=== PATIENT | female | born 1950 | race Caucasian/White ===

== ENCOUNTER 2017-04-09 13:41 | Emergency (ER) | payer OTHER, BC ==
--- NOTE | 2017-04-09 14:56 | DIAGNOSTIC IMAGING REPORT ---
PROCEDURE: XR CHEST 1 VIEW INDICATION: SHORTNESS OF BREATH TECHNIQUE: Portable AP view 02:29 p.m. COMPARISON: None. FINDINGS: Lungs are clear. Heart and mediastinum are normal. Thorax is normal. IMPRESSION: 1. Negative chest.
--- NOTE | 2017-04-09 17:21 | DIAGNOSTIC IMAGING REPORT ---
PROCEDURE: CTA THORAX WITH CONTRAST INDICATION: SHORTNESS OF BREATH TECHNIQUE: 92 ml of Isovue 370 was injected intravenously and axial images were obtained of the entire thorax with 3D sagittal and coronal MIP reconstructions. COMPARISON: Chest x-ray 04/09/2017 no evidence of pulmonary emboli. FINDINGS: No evidence of pulmonary emboli. No infiltrates. Calcified left lower lobe granuloma. No adenopathy or effusion. Moderate atherosclerosis of the aorta. Normal heart size. Visualized upper abdomen is unremarkable. Moderate degenerative changes of the spine. IMPRESSION: 1. No evidence of pulmonary emboli, aortic dissection or aneurysm 2. Old granulomatous disease 3. Results discussed with Dr. Pelletier
--- NOTE | 2017-04-09 17:40 | ED ORDER SUMMARY ---
..... Patient: HAYDEN MILES OrderSheet [facility] VisitID: [id number] [address] [place] [address] 66y, F Registration Date/Time: 04/09/2017 ORDER SHEET Weight: 83.9 kg (stated) Allergies: No Known Drug Allergy GENERAL ORDERS: Chest 1V Urgent (14:10 04/09/2017 Travon ALCANTAR) (Ack 14:16 NHouse ER Tech1) (14:26 JBoardley R.N.) Shear Operator (Continuous) (14:10 04/09/2017 Travon ALCANTAR) (14:15 NHouse ER Tech1) Cardiac Panel Stat (14:13 04/09/2017 Travon ALCANTAR) (14:14 PWeiler ER Tech1) BNP Urgent (14:04/09/2017 Travon ALCANTAR) (14:14 PWeiler ER Tech1) Oxygen (2 L/min) (NC) (14:13 04/09/2017 Travon ALCANTAR) (14:26 JBoardley R.N.) Pulse oximeter (14:13 04/09/2017 Travon ALCANTAR) (14:15 NHouse ER Tech1) EKG - ER Stat (14:13 04/09/2017 Travon ALCANTAR) (14:14 PWeiler ER Tech1) CTA Thorax w Cont (No) (ok) Urgent (16:24 04/09/2017 Travon ALCANTAR) (Ack 16:32 NHouse ER Tech1) (16:58 MCampbell) MEDICATION ORDERS: Aspirin PO 325 mg (NOW) (14:03 04/09/2017 Juliann R.N. verbal order read back to Travon ALCANTAR) (14:03 Juliann R.N.) DuoNeb Neb Tx 1 unit dose (NOW) (14:13 04/09/2017 Travon ALCANTAR) (Ack 14:16 NHouse ER Tech1) (14:23 DBourey) Prednisone PO 60 mg (NOW) (14:14 04/09/2017 Travon ALCANTAR) (Ack 14:15 JBoardley R.N.) (14:27 JBoardley R.N.) IV FLUIDS: IV NS : initial bolus 1000 mL (1000 mL/hr), then none - (NOW) (14:10 04/09/2017 Travon ALCANTAR) ([facility] 14:15 Raquel Conway.Nia) (14:27 Raquel Robles) ORDER SHEET NOTES: [Electronically signed by Bj Vega R.N. (18:03 04/09/2017)] [Electronically signed by Cydney Pelletier MD (03:05 04/11/2017)] [Electronically locked/signed by Bj Vega R.N. (18:03 04/09/2017)]
--- NOTE | 2017-04-09 17:40 | ED ORDER SUMMARY ---
..... Patient: HAYDEN MILES OrderSheet [facility] VisitID: [id number] [address] [place] [address] 66y, F Registration Date/Time: 04/09/2017 ORDER SHEET Weight: 83.9 kg (stated) Allergies: No Known Drug Allergy GENERAL ORDERS: Chest 1V Urgent (14:10 04/09/2017 Travon ALCANTAR) (Ack 14:16 NHouse ER Tech1) (14:26 JBoardley R.N.) Aluminum Can Collector (Continuous) (14:10 04/09/2017 Travon ALCANTAR) (14:15 NHouse ER Tech1) Cardiac Panel Stat (14:13 04/09/2017 Travon ALCANTAR) (14:14 PWeiler ER Tech1) BNP Urgent (14:04/09/2017 Travon ALCANTAR) (14:14 PWeiler ER Tech1) Oxygen (2 L/min) (NC) (14:13 04/09/2017 Travon ALCANTAR) (14:26 JBoardley R.N.) Pulse oximeter (14:13 04/09/2017 Travon ALCANTAR) (14:15 NHouse ER Tech1) EKG - ER Stat (14:13 04/09/2017 Travon ALCANTAR) (14:14 PWeiler ER Tech1) CTA Thorax w Cont (No) (ok) Urgent (16:24 04/09/2017 Travon ALCANTAR) (Ack 16:32 NHouse ER Tech1) (16:58 MCampbell) MEDICATION ORDERS: Aspirin PO 325 mg (NOW) (14:03 04/09/2017 Juliann R.N. verbal order read back to Travon ALCANTAR) (14:03 Juliann R.N.) DuoNeb Neb Tx 1 unit dose (NOW) (14:13 04/09/2017 Travon ALCANTAR) (Ack 14:16 NHouse ER Tech1) (14:23 DBourey) Prednisone PO 60 mg (NOW) (14:14 04/09/2017 Travon ALCANTAR) (Ack 14:15 JBoardley R.N.) (14:27 JBoardley R.N.) IV FLUIDS: IV NS : initial bolus 1000 mL (1000 mL/hr), then none - (NOW) (14:10 04/09/2017 Travon ALCANTAR) ([facility] 14:15 Raquel Conway.Nia) (14:27 Raquel Robles) ORDER SHEET NOTES: [Electronically signed by Bj Vega R.N. (18:03 04/09/2017)] [Electronically signed by Cydney Pelletier MD (03:05 04/11/2017)] [Electronically locked/signed by Bj Vega R.N. (18:03 04/09/2017)]
--- NOTE | 2017-04-09 17:40 | ED NURSING NOTES ---
Clinical Report - Nurses [facility] [address] 04/09/2017 13:45 Patient: HAYDEN MILES TRIAGE Triage time 13:51. Acuity: LEVEL 3. Chief Complaint: CHEST PAIN and SHORTNESS OF BREATH (and cough). Alert. No acute distress. ( Pt. states she started having pain in her left shoulder and under her left breast. This started 3 days ago and she is concerned now because the pain is not going away. She said the pain is "sharp, shooting pain," and is worse when moving. 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 SEPSIS SCREEN: Sepsis Screen. Negative (no infection suspected/documented). ASAD COMA SCORE: Aylett Coma Scale: 15- eyes open spontaneously (4); best verbal response- oriented x 4 (5); best motor response- obeys commands (6). --14:03 Lorna Tee R.N. 13:51 04/09/17. Pain level now 5/10. --14:03 Lorna Tee R.N. Weight: 83.9 kg stated. Height/Length: 66 inches Per Patient. BMI: 29.9. --13:54 Lorna Tee R.N. Medications Levothyroxine Sodium Oral 112mcg, daily. --13:56 Lorna Tee R.N. Flexeril 10mg prn . --13:56 Lorna Tee R.N. Cortisone injections. --13:57 Lorna Tee R.N. Ambien Oral, as needed. --13:57 Lorna Tee R.N. Albuterol Sulfate Inhalation. --14:02 Lorna Tee R.N. Allergies No Known Drug Allergy. --13:57 Lorna Tee R.N. History Arrived by private vehicle. Historian: patient. Unaccompanied. Primary physician (Dr. Mathis: in [place]). Onset. (3 days ago. Pt. states she is concerned because she is not getting any better.). Treatment VALVE PIPE IRRIGATOR: None. PAST MEDICAL HX: Immunizations: up-to-date. SOCIAL HX: Light tobacco smoker (cigarette)- less than 1/2 a pack per day. Occasional alcohol use. No drug use. ABUSE ASSESSMENT: Abuse assessment: The patient was asked "Do you feel safe in your home?" and "Has anyone hurt you or threatened to hurt you?". No report of abuse. SELF HARM ASSESSMENT: A self harm assessment was performed. The patient answered "no" to the question "Do you have thoughts of harming or killing yourself?" and "Have you recently had thoughts about harming or killing others?". NUTRITIONAL RISK ASSESSMENT: The nutritional risk assessment revealed no deficiencies. FUNCTIONAL ASSESSMENT: Functional assessment: no impairments noted. LEARNING NEEDS ASSESSMENT: The learning needs assessment revealed no barriers. --14:03 Lorna Tee R.N. PROBLEMS: Nephrolithiasis. Chronic Back Pain. Hypothyroidism. --13:58 Lorna Tee R.N. ADDITIONAL SURGERIES: Back Surgery. --13:58 Lorna Tee R.N. Interventions ID band on patient. Ambulatory. --14:03 Lorna Tee R.N. PHYSICAL ASSESSMENT 14:00. Ambulatory to room. GENERAL / NEURO / PSYCH: Alert. Oriented X 4. Appears in no acute distress. HEENT: Mucous membranes are pink. RESPIRATORY: Respirations not labored. CVS: Pulses within normal limits. Capillary refill less than 2 seconds. GI / : Abdomen soft. EXTREMITIES: No lower extremity edema. SKIN: Skin is warm and dry. Skin is non-tender. --14:00 Lorna Tee R.N. ( Pt. has a dry non-productive cough.). --14:03 Lorna Tee R.N. NURSING PROGRESS NOTES EKG time: (1356). EKG was ordered, performed by a tech and shown to the ED physician. --13:58 Lorna Tee R.N. 13:56. Oxygen administered by nasal cannula at 2 liters. assistant manager bilingual, pulse oximeter and NIBP monitor placed on patient; wharfinger chief- Lead II; monitor alarms on. Patient gowned. Head of bed elevated. Two patient identifiers checked. Call light placed in reach. Side rails up x 2. Bed placed in lowest position. Brakes of bed on. Patient ready for evaluation- chart flagged. --13:59 Lorna Tee R.N. 13:59 04/09/2017 Site #1 started via IV in the left antecubital space with an 20g angiocath, with aseptic technique and good blood return; one attempt. Blood drawn: rainbow set. Labeled in the presence of the patient and sent to the lab. Saline lock flushed with 10 mL saline (accessed by BRI Walsh). --13:59 Lorna Tee R.N. 14:03 04/09/2017 Aspirin PO 325 mg given. Allergies verified and confirmed 5 rights. --14:03 Lorna Tee R.N. 14:17 04/09/2017 Started bag #1 1000 mL IV Fluids IV NS (Saline); at 1000 mL/hr over 1 hour(s) via site #1. Allergies verified and confirmed 5 rights. IV patency established. IV site checked: no pain, redness, or swelling. IV flushed thoroughly pre- and post-medication administration. Completed per protocol. --14:27 Bj Vega R.N. 14:22 04/09/2017 Prednisone PO 60 mg given. Allergies verified and confirmed 5 rights. --14:27 Bj Vega R.N. 14:04/09/2017 Duoneb (Ipratropium-Albuterol) Neb TX 1 unit dose given. Given by the respiratory therapist. --14:23 Frantz Abrams 14:28 04/09/17. Cardiac rhythm: normal sinus rhythm. --14:28 Bj Vega R.N. 14:27 04/09/17. BP: 120/70. HR: 83. RR: 16. O2 saturation: 100% on nasal cannula at 2 liters/minute. --14:28 Bj Vega R.N. 14:41 04/09/17. Reassessment after oxygen and fluids administered and medication administered. She has had no adverse reaction. Overall patient status is the same- she states feels the same. --14:41 Bj Vega R.N. 14:41 04/09/17. BP: 113/69. HR: 88. RR: 20. O2 saturation: 98% on nasal cannula at 2 liters/minute. --14:41 Bj Vega R.N. 14:41 04/09/17. --14:41 Bj Vega R.N. 14:42 04/09/17. Cardiac rhythm: normal sinus rhythm. --14:42 Bj Vega R.N. 14:42 04/09/17. Patient informed about reason for wait and about plan of care. --14:42 Bj Vega R.N. 15:49 04/09/17. BP: 113/71. HR: 80 (regular and normal rate). RR: 21. O2 saturation: 98% on nasal cannula at 2 liters/minute. Pain level now: 02/25. --15:49 Lorna Tee R.N. 17:08 04/09/17. BP: 124/70. HR: 79. RR: 20. O2 saturation: 98%. --17:09 Lorna Tee R.N. Patient informed about reason for wait and about plan of care. --17:09 Lorna Tee R.N. 17:49 04/09/2017 IV Fluids IV NS Discontinued: bag #1 infused upon discharge. Total amount infused: 1000 mL. --17:49 Bj Vega R.N. DISPOSITION / DISCHARGE 17:48 04/09/2017 Site #1 removed upon discharge. Catheter intact. Bandage applied. --17:48 Bj Vega R.N. 17:48 04/09/17. Condition at departure: improved. The goals identified in the patient's plan of care were met. No learning barriers present. Discharge instructions provided and reviewed with the patient. Reviewed warnings. Reviewed medication(s). Treatments reviewed. Patient verbalized understanding. Written instructions provided in Persian. The patient was discharged by the physician. She was discharged home and accompanied by family. She left the Emergency Department ambulatory and via private vehicle. Family member driving. --17:49 Bj Vega R.N. 17:48 04/09/17. BP: 124/73. HR: 83. RR: 14. O2 saturation: 99% on room air. Temp: 98.1 F (oral). Pain level now: 01/25. --17:49 Bj Vega R.N. 17:49 04/09/17. Departure time: 17:49 Apr 09 2017. --17:49 Bj Vega R.N. Locked/Released at 04/09/2017 18:03 by Bj Vega R.N.
--- NOTE | 2017-04-09 17:40 | ED NURSING NOTES ---
Clinical Report - Nurses [facility] [place] [address] [address] 04/09/2017 13:45 Patient: HAYDEN MILES TRIAGE Triage time 13:51. Acuity: LEVEL 3. Chief Complaint: CHEST PAIN and SHORTNESS OF BREATH (and cough). Alert. No acute distress. ( Pt. states she started having pain in her left shoulder and under her left breast. This started 3 days ago and she is concerned now because the pain is not going away. She said the pain is "sharp, shooting pain," and is worse when moving. 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 SEPSIS SCREEN: Sepsis Screen. Negative (no infection suspected/documented). ASAD COMA SCORE: Chana Coma Scale: 15- eyes open spontaneously (4); best verbal response- oriented x 4 (5); best motor response- obeys commands (6). --14:03 Lorna Tee R.N. 13:51 04/09/17. Pain level now 5/10. --14:03 Lorna Tee R.N. Weight: 83.9 kg stated. Height/Length: 66 inches Per Patient. BMI: 29.9. --13:54 Lorna Tee R.N. Medications Levothyroxine Sodium Oral 112mcg, daily. --13:56 Lorna Tee R.N. Flexeril 10mg prn . --13:56 Lorna Tee R.N. Cortisone injections. --13:57 Lorna Tee R.N. Ambien Oral, as needed. --13:57 Lorna Tee R.N. Albuterol Sulfate Inhalation. --14:02 Lorna Tee R.N. Allergies No Known Drug Allergy. --13:57 Lorna Tee R.N. History Arrived by private vehicle. Historian: patient. Unaccompanied. Primary physician (Dr. Mathis: in [place]). Onset. (3 days ago. Pt. states she is concerned because she is not getting any better.). Treatment IT LEAD: None. PAST MEDICAL HX: Immunizations: up-to-date. SOCIAL HX: Light tobacco smoker (cigarette)- less than 1/2 a pack per day. Occasional alcohol use. No drug use. ABUSE ASSESSMENT: Abuse assessment: The patient was asked "Do you feel safe in your home?" and "Has anyone hurt you or threatened to hurt you?". No report of abuse. SELF HARM ASSESSMENT: A self harm assessment was performed. The patient answered "no" to the question "Do you have thoughts of harming or killing yourself?" and "Have you recently had thoughts about harming or killing others?". NUTRITIONAL RISK ASSESSMENT: The nutritional risk assessment revealed no deficiencies. FUNCTIONAL ASSESSMENT: Functional assessment: no impairments noted. LEARNING NEEDS ASSESSMENT: The learning needs assessment revealed no barriers. --14:03 Lorna Tee R.N. PROBLEMS: Nephrolithiasis. Chronic Back Pain. Hypothyroidism. --13:58 Lorna Tee R.N. ADDITIONAL SURGERIES: Back Surgery. --13:58 Lorna Tee R.N. Interventions ID band on patient. Ambulatory. --14:03 Lorna Tee R.N. PHYSICAL ASSESSMENT 14:00. Ambulatory to room. GENERAL / NEURO / PSYCH: Alert. Oriented X 4. Appears in no acute distress. HEENT: Mucous membranes are pink. RESPIRATORY: Respirations not labored. CVS: Pulses within normal limits. Capillary refill less than 2 seconds. GI / : Abdomen soft. EXTREMITIES: No lower extremity edema. SKIN: Skin is warm and dry. Skin is non-tender. --14:00 Lorna Tee R.N. ( Pt. has a dry non-productive cough.). --14:03 Lorna Tee R.N. NURSING PROGRESS NOTES EKG time: (1356). EKG was ordered, performed by a tech and shown to the ED physician. --13:58 Lorna Tee R.N. 13:56. Oxygen administered by nasal cannula at 2 liters. vehicle monitor technician, pulse oximeter and NIBP monitor placed on patient; telemetry monitor- Lead II; monitor alarms on. Patient gowned. Head of bed elevated. Two patient identifiers checked. Call light placed in reach. Side rails up x 2. Bed placed in lowest position. Brakes of bed on. Patient ready for evaluation- chart flagged. --13:59 Lorna Tee R.N. 13:59 04/09/2017 Site #1 started via IV in the left antecubital space with an 20g angiocath, with aseptic technique and good blood return; one attempt. Blood drawn: rainbow set. Labeled in the presence of the patient and sent to the lab. Saline lock flushed with 10 mL saline (accessed by BRI Walsh). --13:59 Lorna Tee R.N. 14:03 04/09/2017 Aspirin PO 325 mg given. Allergies verified and confirmed 5 rights. --14:03 Lorna Tee R.N. 14:17 04/09/2017 Started bag #1 1000 mL IV Fluids IV NS (Saline); at 1000 mL/hr over 1 hour(s) via site #1. Allergies verified and confirmed 5 rights. IV patency established. IV site checked: no pain, redness, or swelling. IV flushed thoroughly pre- and post-medication administration. Completed per protocol. --14:27 Bj Vega R.N. 14:22 04/09/2017 Prednisone PO 60 mg given. Allergies verified and confirmed 5 rights. --14:27 Bj Vega R.N. 14:04/09/2017 Duoneb (Ipratropium-Albuterol) Neb TX 1 unit dose given. Given by the respiratory therapist. --14:23 Frantz Abrams 14:28 04/09/17. Cardiac rhythm: normal sinus rhythm. --14:28 Bj Vega R.N. 14:27 04/09/17. BP: 120/70. HR: 83. RR: 16. O2 saturation: 100% on nasal cannula at 2 liters/minute. --14:28 Bj Vega R.N. 14:41 04/09/17. Reassessment after oxygen and fluids administered and medication administered. She has had no adverse reaction. Overall patient status is the same- she states feels the same. --14:41 Bj Vega R.N. 14:41 04/09/17. BP: 113/69. HR: 88. RR: 20. O2 saturation: 98% on nasal cannula at 2 liters/minute. --14:41 Bj Vega R.N. 14:41 04/09/17. --14:41 Bj Vega R.N. 14:42 04/09/17. Cardiac rhythm: normal sinus rhythm. --14:42 Bj Vega R.N. 14:42 04/09/17. Patient informed about reason for wait and about plan of care. --14:42 Bj Vega R.N. 15:49 04/09/17. BP: 113/71. HR: 80 (regular and normal rate). RR: 21. O2 saturation: 98% on nasal cannula at 2 liters/minute. Pain level now: 02/25. --15:49 Lorna Tee R.N. 17:08 04/09/17. BP: 124/70. HR: 79. RR: 20. O2 saturation: 98%. --17:09 Lorna Tee R.N. Patient informed about reason for wait and about plan of care. --17:09 Lorna Tee R.N. 17:49 04/09/2017 IV Fluids IV NS Discontinued: bag #1 infused upon discharge. Total amount infused: 1000 mL. --17:49 Bj Vega R.N. DISPOSITION / DISCHARGE 17:48 04/09/2017 Site #1 removed upon discharge. Catheter intact. Bandage applied. --17:48 Bj Vega R.N. 17:48 04/09/17. Condition at departure: improved. The goals identified in the patient's plan of care were met. No learning barriers present. Discharge instructions provided and reviewed with the patient. Reviewed warnings. Reviewed medication(s). Treatments reviewed. Patient verbalized understanding. Written instructions provided in Serbian. The patient was discharged by the physician. She was discharged home and accompanied by family. She left the Emergency Department ambulatory and via private vehicle. Family member driving. --17:49 Bj Vega R.N. 17:48 04/09/17. BP: 124/73. HR: 83. RR: 14. O2 saturation: 99% on room air. Temp: 98.1 F (oral). Pain level now: 01/25. --17:49 Bj Vega R.N. 17:49 04/09/17. Departure time: 17:49 Apr 09 2017. --17:49 Bj Vega R.N. Locked/Released at 04/09/2017 18:03 by Bj Vega R.N.
--- NOTE | 2017-04-09 17:40 | ED CLINICAL REPORT ---
Clinical Report - Physicians/Mid Levels [facility] [address] [place] [address] 04/09/2017 13:45 Patient: HAYDEN MILES Time Seen: 13:51. Arrived- By private vehicle. Historian- patient. HISTORY OF PRESENT ILLNESS Chief Complaint: CHEST DISCOMFORT. SHORTNESS OF BREATH chest tightness, cough. At its maximum, severity described as moderate. When seen in the E.D., severity described as moderate. Modifying factors- worsened by cough and deep breaths. Not relieved by anything. It is described as tightness and it is described as located in the central chest area. No radiation. This started about 2 weeks ago and is still present. The patient cannot recall the circumstances at the onset. No nausea, vomiting or diaphoresis. She has had difficulty breathing. (patient has been coughing for about 2 weeks now. She states that she has not smoked in about a week, due to the cough and sense of shortness of breath. Patient states her chest tightness has been increasing and that now, she has a pain deep inside her chest to the right. No radiation. Patient does not have a history of COPD though she has smoked for many years. She states her normal oxygen saturation is 94-96%.). Similar symptoms previously: None. Recent medical care: Not recently seen/assessed. REVIEW OF SYSTEMS No fever, chills, cough, pedal edema or calf pain. No fainting episodes, headache, sore throat, blurred vision or abdominal pain. No black stools, difficulty with urination, skin rash, enlarged lymph nodes or joint pain. No bloody stools. All systems otherwise negative, except as recorded above. PAST HISTORY Problems: Nephrolithiasis. Chronic Back Pain. Hypothyroidism. Additional Surgeries: Back Surgery. Medications: Albuterol Sulfate Inhalation. Ambien Oral, as needed. Cortisone injections. Flexeril 10mg prn . Levothyroxine Sodium Oral 112mcg, daily. Allergies: No Known Drug Allergy. SOCIAL HISTORY Smoker- current status unknown. Alcohol use. No drug use. ADDITIONAL NOTES The nursing notes have been reviewed. PHYSICAL EXAM Vital Signs: 04/09/2017 13:51 BP: 133/81. HR: 103. RR: 18. O2 saturation: 96%. Have been reviewed. Appearance: Alert. Oriented X3. No acute distress. (Patient has proximal symptoms of a tight dry cough.). Eyes: Pupils equal, round and reactive to light. Eyes normal inspection. ENT: Nose normal. Neck: Normal inspection. CVS: Normal heart rate and rhythm. Heart sounds normal. Pulses normal. Respiratory: No respiratory distress. Wheezing present (Patient has occasional,fine wheezes in her upper airways.). Breath sounds normal. Chest nontender. Abdomen: Soft and nontender. Back: Normal external inspection. No CVA tenderness. Skin: Skin warm and dry. Normal skin color. No rash. Normal skin turgor. Extremities: Extremities exhibit normal ROM. No lower extremity edema. Neuro: Oriented X 3. No motor deficit. No sensory deficit. LABS, X-RAYS, AND EKG EKG: EKG time: (1356). No acute process. No acute ischemia. Normal EKG. Normal sinus rhythm. Rate: 94. Normal P waves. Normal JUANITA. Normal QRS complex. Normal axis. Normal ST and T waves, QT and QTc. Prior EKG unavailable. The study has been interpreted contemporaneously by me. The study has been independently viewed by me. The EKG appears to be a good tracing. I agree with and confirm the computer reading of the EKG. Rhythm Strip #1: Time: (1440). Rate= 96. Normal sinus rhythm. Regular rhythm. Narrow QRS complexes. No ectopy. Conduction normal. Normal ST segments and T waves. The study was interpreted by me. Chest X-ray: No acute disease. Normal lung markings present. Normal heart size. Mediastinum normal. Great vessels normal. Soft tissues normal. No infiltrate. No fracture. No bony lesion present. Views: AP (portable). Technique: good. The X-rays were independently viewed by me, interpreted by the radiologist and contemporaneously by me and discussed with the radiologist. Prior films were not available for comparison. Chest CT: Lungs normal. Great vessels normal. Mediastinum normal. No fractures noted. Chest CT performed with contrast. The study was independently viewed by me, interpreted by the radiologist and contemporaneously by me and discussed with the radiologist. Prior studies were not available for comparison. Laboratory Tests: CBC w Diff: (HAILEE: 04/09/2017 13:59) ( [facility] 04/09/2017 14:23) Final results Test Result Flag Units (Reference) WHITE BLOOD COUNT 10.6 K/uL (4.5-11.5) RED BLOOD COUNT 5.15 M/uL (4.00-5.20) HEMOGLOBIN 15.6 gm/dL (12.0-16.0) HEMATOCRIT 46.4 H % (36.0-46.0) MEAN CELL VOLUME 90 fL (80-100) MEAN CORPUSCULAR HGB 30 pg (26-34) MEAN CORPUSCULAR HGB CONC 34 g/dL (31-37) RED CELL DISTRIBUTION WIDTH 13.5 % (11.6-14.8) PLATELET COUNT 230 K/uL (150-400) NEUTROPHIL % 75.3 H % (50-75) LYMPH % 15.5 L % (25-40) MONO % 7.9 % (3-14) EOSINOPHIL % 1.0 % (0-4) BASOPHIL % 0.3 % (0-2) BNP: (HAILEE: 04/09/2017 13:59) ( [facility] 04/09/2017 14:44) Final results Test Result Flag Units (Reference) B-TYPE NATRIURETIC PEPTIDE 68.9 pg/ml (5-100) CHEM 13 PANEL: (HAILEE: 04/09/2017 13:59) ( [facility] 04/09/2017 14:41) Final results Test Result Flag Units (Reference) GLUCOSE 151 H mg/dL (70-110) BUN 10 mg/dL (7-18) CREATININE 1.2 mg/dL (0.6-1.3) Estimated GFR 47.92 mL/min Estimated GFR- 58.08 mL/min Note: Persistent reduction over 3 months in eGFR<60 mL/min/1.73 m2 defines CKD. Patients with eGFR values>=60 mL/min/1.73 m2 may also have CKD if evidence ofpersistent proteinuria. Additional information may be foundat www.kidney.org. SODIUM 140 mmol/L (136-145) POTASSIUM 3.9 mmol/L (3.5-5.1) CHLORIDE 104 mmol/L (98-107) CARBON DIOXIDE 25 mmol/L (21-32) CALCIUM 8.8 mg/dL (8.5-10.1) TOTAL PROTEIN 7.3 g/dL (6.4-8.2) ALBUMIN 3.5 g/dL (3.3-5.0) BILIRUBIN, TOTAL 0.5 mg/dL (0.0-1.0) ALKALINE PHOSPHATASE 71 U/L (46-116) AST (SGOT) 38 H U/L (15-37) ALT (SGPT) 61 U/L (12-78) MAGNESIUM 1.7 L mg/dL (1.8-2.4) CPK 100 U/L (24-260) TROPONIN I <0.05 L ng/mL (0.00-1.5) TROPONIN REFERENCE RANGE:<0.1 NEGATIVE0.1-1.5 INDETERMINANT>1.5 POSITIVE . Pulse Oximetry: 04/09/2017 13:51 O2 saturation: 96%. (FIO2 - room air). Interpretation: normal. PROGRESS AND PROCEDURES Course of Care: Patient was given an aspirin, as well as a DuoNeb and prednisone, and worked up for her symptoms. Her EKG was completely normal.chest x-ray and labs were unremarkable. I did perform a CT angiogram of the chest to evaluate for pulmonary embolus. This is negative. I did not find an emergent cause of the patient's symptoms; the symptoms sound more respiratory in nature, and I do not believe that at this time the patient has an acute coronary syndrome. Patient was reevaluated and found to be feeling better upon reevaluation than upon arrival, they did so she was stable for discharge home. Patient counseled in person regarding the patient's stable condition, test results, diagnosis and need for follow-up. Concerns were addressed. Old medical records reviewed. Disposition: Discharged. Condition: stable and improved. CLINICAL IMPRESSION Chest pain characterized as "tightness" .12 lead EKG performed. Acute viral bronchitis. INSTRUCTIONS (Your tests all look good. You may use the cough syrup and the nebulized saline, as needed.). Warnings: GENERAL WARNINGS: Return or contact your physician immediately if your condition worsens or changes unexpectedly, if not improving as expected, or if other problems arise. Your Current Medications: CONTINUE TAKING THE FOLLOWING MEDICATIONS: Albuterol Sulfate Inhalation. Ambien Oral : prn. Cortisone injections*. Flexeril 10mg prn *. Levothyroxine Sodium Oral : 112mcg daily. Prescription Medications: Codeine / Promethazine 10mg / 6.25mg per 5 mL: take 1 teaspoon every 6 hours as needed for cough. Dispense sixty (60) mL. Two refills. Follow-up: Follow up with doctor. Understanding of the discharge instructions verbalized by patient. (Electronically signed by Cydney Pelletier MD 04/11/2017 3:05)
--- NOTE | 2017-04-11 03:05 | ED MAR SUMMARY ---
..... Medication Administration Record [facility] [address] [place] [address] Patient: HAYDEN MILES Visit ID: [id number] 66y, F Weight: 83.9 kg Height/Length: 66 in BMI: 29.9 ALLERGIES: No Known Drug Allergy Given 14:03 04/09/2017 Lorna Tee R.N. Medication Administered: ASPIRIN [PO], Dose: 325 mg PO. Medication Ordered: Aspirin PO 325 mg (NOW). Start 14:17 04/09/2017 Bj Vega R.N., Stop 17:49 04/09/2017 Bj Vega R.N. Medication Administered: IV NS (SALINE), Dose: IV Fluids over 1 hour(s), Rate: 1000 mL/hr, Dispensed: 1000 mL bag, Site: #1 left . Medication Ordered: IV NS : initial bolus 1000 mL (1000 mL/hr), then none - (NOW). Given 14:04/09/2017 Bj Vega R.N. Medication Administered: PREDNISONE [PO], Dose: 60 mg PO. Medication Ordered: Prednisone PO 60 mg (NOW). Given 14:04/09/2017 Frantz Abrams, Medication Administered: DUONEB [NEB TX] (IPRATROPIUM-ALBUTEROL), Dose: 1 unit dose Neb TX. Medication Ordered: DuoNeb Neb Tx 1 unit dose (NOW).
--- NOTE | 2017-04-11 03:05 | ED DISCHARGE INSTRUCTIONS ---
Patient: HAYDEN MILES General Instructions [facility] VisitID: [id number] [address] [place] [address] 66y, F Registration Date/Time: 04/09/2017 Chest pain characterized as "tightness" .12 lead EKG performed. Acute viral bronchitis. INSTRUCTIONS (Your tests all look good. You may use the cough syrup and the nebulized saline, as needed.). Warnings: GENERAL WARNINGS: Return or contact your physician immediately if your condition worsens or changes unexpectedly, if not improving as expected, or if other problems arise. Your Current Medications: CONTINUE TAKING THE FOLLOWING MEDICATIONS: Albuterol Sulfate Inhalation. Ambien Oral : prn. Cortisone injections*. Flexeril 10mg prn *. Levothyroxine Sodium Oral : 112mcg daily. Prescription Medications: Codeine / Promethazine 10mg / 6.25mg per 5 mL: take 1 teaspoon every 6 hours as needed for cough. Dispense sixty (60) mL. Two refills. Follow-up: Follow up with doctor. Understanding of the discharge instructions verbalized by patient. ADDITIONAL INFORMATION Chest Pain, Uncertain Cause Chest pain can happen for a number of reasons. Sometimes the cause can not be determined. If yourcondition does not seem serious, and your pain does not appear to be coming from your heart, your doctor may recommend watching it closely. Sometimes the signs of a serious problem take more time to appear. Therefore, watch for the warning signs listed below. Home care After your visit, follow these recommendations: Rest today and avoid strenuous activity. Take any prescribed medicine as directed. Follow-up care Follow up with your doctor or this facility as instructed or if you do not start to feel better within 24 hours. Call 911 Get immediate medical attention if any of the following occur: A change in the type of pain: if it feels different, becomes more severe, lasts longer, or begins to spread into your shoulder, arm, neck, jaw or back Shortness of breath or increased pain with breathing Weakness, dizziness, or fainting Rapid heart beat Get prompt medical attention Call your doctor right away if any of the following occur: Cough with dark colored sputum (phlegm) or blood Fever of 100.4F(38C) or higher, or as directed by your health care provider Swelling, pain or redness in one leg Bronchitis, Viral (Adult: No Abx) You have a viral bronchitis. This illness is contagious during the first few days and is spread through the air by coughing and sneezing, or by direct contact (touching the sick person and then touching your own eyes, nose, or mouth). Most viral illnesses resolve within 10-14 days with rest and simple home remedies, although they may sometimes last for several weeks. Antibiotics will not kill a virus and are generally not prescribed for this condition. Home Care: If symptoms are severe, rest at home for the first 2-3 days. When resuming activity, don't let yourself become overly tired. Do not smoke and avoid the smoke of others. You may use acetaminophen (Tylenol) or ibuprofen (Motrin, Advil) to control fever or pain, unless another pain medicine was prescribed. [NOTE: If you have chronic liver or kidney disease or ever had a stomach ulcer or GI bleeding, talk with your doctor before using these medicines.] (Aspirin should never be used in anyone under 18 years of age who is ill with a fever. It may cause severe liver damage.) Your appetite may be poor so a light diet is fine. Avoid dehydration by drinking 6-8 glasses of fluids per day (water, sport drinks such as Gatorade, juices, tea, soup, etc.). Extra fluids will help loosen secretions in the nose and lung. Zyfw-mat-hggtebf cold medicines will not shorten the length of the illness, but may be helpful for cough (Robitussin DM), sore throat (Chloraseptic lozenges or spray), nasal and sinus congestion (Actifed or Sudafed). [NOTE: Do not use decongestants if you have high blood pressure.] Follow Up with your doctor or as directed by our staff if you are not improving over the next week. NOTE: If you are age 65 or older, or if you have chronic asthma or COPD, we recommend a PNEUMOCOCCAL VACCINATION every five years and a yearly INFLUENZAVACCINATION (FLU-SHOT) every . Ask your doctor about this. If you had an X-ray, a radiologist will review it. You will be notified of any new findings that may affect your care.] Get Prompt Medical Attention if any of the following occur: Fever over 100.4F (38.0C) for more than three days Trouble breathing, wheezing or pain with breathing Coughing up blood or increased amounts of colored sputum Weakness, drowsiness, headache, facial pain, ear pain or a stiff neck You have been given the following additional information: Chest Pain, Uncertain Cause Bronchitis, No Antibiotic (Adult) (Electronically signed by Cydney Pelletier MD 04/11/2017 3:05)
--- NOTE | 2017-04-11 03:05 | ED MED RECONCILIATION SUMMARY ---
Patient: HAYDEN MILES Medication Reconciliation Report [facility] VisitID: [id number] [address] [place] [address] 66y, F Registration Date/Time: 04/09/2017 Weight: 83.9 kg Height/Length: 66 in. BMI: 29.9 ALLERGIES: No Known Drug Allergy The patient's Home Medications are listed below: CONTINUE TAKING THE FOLLOWING MEDICATIONS: Albuterol Sulfate Inhalation Ambien Oral Cortisone injections Flexeril 10mg prn Levothyroxine Sodium Oral 112mcg, daily The source(s) of the original Home Medication information: Not obtained. The following Medications were given to the patient in the Emergency Department: Aspirin [PO] PO 325 mg, administered: 04/09/2017 2:03:00 PM Duoneb [Neb Tx] Neb TX 1 unit dose, administered: 04/09/2017 2:23:00 PM IV NS IV Fluids bolus 0, then 1000 mL/hr, administered: 04/09/2017 2:17:00 PM Prednisone [PO] PO 60 mg, administered: 04/09/2017 2:22:00 PM The following Medications were prescribed to the patient: Codeine / Promethazine 10mg / 6.25mg per 5 mL: take 1 teaspoon every 6 hours as needed for cough. Dispense sixty (60) mL. Two refills. -- Cydney Pelletier MD
--- NOTE | 2017-04-11 03:05 | ED MAR SUMMARY ---
..... Medication Administration Record [facility] [address] [place] [address] Patient: HAYDEN MILES Visit ID: [id number] 66y, F Weight: 83.9 kg Height/Length: 66 in BMI: 29.9 ALLERGIES: No Known Drug Allergy Given 14:03 04/09/2017 Lorna Tee R.N. Medication Administered: ASPIRIN [PO], Dose: 325 mg PO. Medication Ordered: Aspirin PO 325 mg (NOW). Start 14:17 04/09/2017 jB Vega R.N., Stop 17:49 04/09/2017 Bj Vega R.N. Medication Administered: IV NS (SALINE), Dose: IV Fluids over 1 hour(s), Rate: 1000 mL/hr, Dispensed: 1000 mL bag, Site: #1 left . Medication Ordered: IV NS : initial bolus 1000 mL (1000 mL/hr), then none - (NOW). Given 14:04/09/2017 Bj Vega R.N. Medication Administered: PREDNISONE [PO], Dose: 60 mg PO. Medication Ordered: Prednisone PO 60 mg (NOW). Given 14:04/09/2017 Frantz Abrams, Medication Administered: DUONEB [NEB TX] (IPRATROPIUM-ALBUTEROL), Dose: 1 unit dose Neb TX. Medication Ordered: DuoNeb Neb Tx 1 unit dose (NOW).
--- NOTE | 2017-04-11 03:05 | ED MED RECONCILIATION SUMMARY ---
Patient: HAYDEN MILES Medication Reconciliation Report [facility] VisitID: [id number] [address] [place] [address] 66y, F Registration Date/Time: 04/09/2017 Weight: 83.9 kg Height/Length: 66 in. BMI: 29.9 ALLERGIES: No Known Drug Allergy The patient's Home Medications are listed below: CONTINUE TAKING THE FOLLOWING MEDICATIONS: Albuterol Sulfate Inhalation Ambien Oral Cortisone injections Flexeril 10mg prn Levothyroxine Sodium Oral 112mcg, daily The source(s) of the original Home Medication information: Not obtained. The following Medications were given to the patient in the Emergency Department: Aspirin [PO] PO 325 mg, administered: 04/09/2017 2:03:00 PM Duoneb [Neb Tx] Neb TX 1 unit dose, administered: 04/09/2017 2:23:00 PM IV NS IV Fluids bolus 0, then 1000 mL/hr, administered: 04/09/2017 2:17:00 PM Prednisone [PO] PO 60 mg, administered: 04/09/2017 2:22:00 PM The following Medications were prescribed to the patient: Codeine / Promethazine 10mg / 6.25mg per 5 mL: take 1 teaspoon every 6 hours as needed for cough. Dispense sixty (60) mL. Two refills. -- Cydney Pelletier MD
== END 2017-04-09 17:49 | disposition home or self-care (01) ==
LOC: ED SRH 13:41
DX: R07.89 Other chest pain (principal); J20.8 Acute bronchitis due to other specified organisms; E07.9 Disorder of thyroid, unspecified; Z79.899 Other long term (current) drug therapy; Z79.51 Long term (current) use of inhaled steroids
CPT/HCPCS: 90100; 90616; 91320; 92610; 92720; 95059